=== PATIENT | female | born 1955 | race Caucasian/White ===

== ENCOUNTER 2019-03-08 10:48 | Day surgery (SDC) | payer OTHER ==
[~2019-03-08] VITALS: Ht 160 cm; Wt 79.2 kg
[~2019-03-08 10:48] MED LIST: DHEA PO; HYDACE5 PO; THYR60 PO
[2019-03-08] MEDS ORDERED: LEVSOD75 PO (12:07)
== END 2019-03-08 13:05 | disposition home or self-care (01) ==
LOC: ORSCSDS 10:48
PROVIDERS: Internal Medicine Gastroenterology
PROC: 0DJD8ZZ Inspection of Lower Intestinal Tract, Via Natural or Artificial Opening Endoscopic (ICD-10-PCS; principal; 2019-03-08 12:00)
DX: Z12.11 Encounter for screening for malignant neoplasm of colon (principal); K57.30 Diverticulosis of large intestine without perforation or abscess without bleeding; K64.8 Other hemorrhoids; E03.9 Hypothyroidism, unspecified; E66.9 Obesity, unspecified; Z68.33 Body mass index [BMI] 33.0-33.9, adult; Z79.899 Other long term (current) drug therapy
CPT/HCPCS: J2704; J7120